=== PATIENT | male | born 1955 | race African-American/Black ===

== ENCOUNTER 2018-09-22 20:58 | Inpatient (IN) ==
[2018-09-22] MEDS ORDERED: Sod Chloride 0.9% Inj 1,000 ML IV.SIG ONE (22:00)
[2018-09-22] MEDS ORDERED: Morphine Sulfate Inj 2 MG/ML Vial IV.PUSH ONE (22:02)
[2018-09-22 22:37] LABS: Baso % (Auto) 0.6 % (0.0-2.0); Eos # (Auto) 0.1 th/mm3 (0.0-0.4); Eos % (Auto) 2.3 % (0.0-4.0); Hemoglobin 12.7 gm/dL (13.0-17.0); Lymph # (Auto) 1.5 th/mm3 (1.0-4.8); Lymph % (Auto) 28.7 % (9.0-44.0); Mean Corpuscular HGB Conc 34.2 % (32.0-36.0); Mean Corpuscular Hemoglobin 29.8 pg (27.0-34.0); Mean Corpuscular Volume 86.9 fL (80.0-100.0); Mean Platelet Volume 8.9 fL (7.0-11.0); Mono # (Auto) 0.6 th/mm3 (0.0-0.9); Mono % (Auto) 12.7 % (0.0-8.0); Neut # (Auto) 2.8 th/mm3 (1.8-7.7); Neut % (Auto) 55.7 % (16.0-70.0); Platelet Count 202 th/mm3 (150-450); Red Blood Count 4.25 mil/mm3 (4.50-5.90); Red Cell Distribution Width 13.6 % (11.6-17.2); White Blood Count 5.1 th/mm3 (4.0-11.0)
[2018-09-22 22:57] LABS: Activated Partial Thrombo Time 25.8 sec (24.3-30.1); INR 1.1 Ratio; Prothrombin Time 10.9 sec (9.8-11.6)
[2018-09-22 23:00] LABS: Alanine Aminotransferase 42 U/L (12-78); Alkaline Phosphatase 132 U/L (45-117); Creatine Kinase 240 U/L (39-308)
[2018-09-22 23:04] LABS: Albumin 3.7 g/dL (3.4-5.0); Anion Gap 7 meq/L (5-15); Aspartate Aminotransferase 35 U/L (15-37); Blood Urea Nitrogen 15 mg/dL (7-18); Calcium 8.7 mg/dL (8.5-10.1); Carbon Dioxide 28.4 meq/L (21.0-32.0); Chloride 108 meq/L (98-107); Glomerular Filtration Rate 75 mL/min (>89); Glucose,Random 94 mg/dL (74-106); Lipase 144 U/L (73-393); Magnesium 1.8 mg/dL (1.5-2.5); Potassium 3.8 meq/L (3.5-5.1); Sodium 143 meq/L (136-145)
[2018-09-22 23:18] LABS: Amphetamine Screen,Urine Neg (Neg); Barbiturate Screen,Urine Neg (Neg); Cannabinoid Screen,Urine Neg (Neg); Cocaine Screen,Urine Neg (Neg)
[2018-09-22 23:18] LABS: Creatine Kinase MB 1.4 ng/mL (0.5-3.6)
[2018-09-22 23:22] LABS: Opiate Screen,Urine Neg (Neg)
--- NOTE | 2018-09-22 23:48 | ED ---
HPI General Chief complaint: Abdominal Pain Stated complaint: Abdominal Pain Time Seen by Provider: 09/22/18 21:43 History of Present Illness HPI narrative: 63-year-old male here for evaluation of left lower quadrant abdominal pain, hematuria, and hematochezia. The patient reports having had hematuria and blood on his toilet paper after having a bowel movement for the last couple of weeks. He states that today he has been having left lower quadrant abdominal pain that started about an hour prior to arrival to the emergency department. The pain is sharp, constant, moderate, intermittently worse at times, no modifying factors. No nausea or vomiting. Last bowel movement was earlier today. He denies history of abdominal surgeries. No fevers or chills. No dysuria. Related Data Home Medications Medication Instructions Recorded Confirmed amlodipine 10 mg PO DAILY 09/22/18 09/22/18 lisinopril 40 mg PO DAILY 09/22/18 09/22/18 omeprazole 40 mg PO DAILY 09/22/18 09/22/18 Allergies Allergy/AdvReac Type Severity Reaction Status Date / Time No Known Allergies Allergy Uncoded 10/11/16 08:41 Review of Systems ROS: all other systems reviewed are negative [facility] Social History Social History Substance History: No History of Abuse Second Hand Smoke Exposure: No Smoking Status: Never smoker How Often Do You Have a Drink Containing Alcohol: Never Recent Travel in [facility] within the Last 8 Weeks: No Recent Out of Country Travel within the Last 8 Weeks: No Immunization History Tetanus Immunization: <5 Years Exam Narrative Exam Narrative: GENERAL: Well-developed, well-nourished, comfortable, no apparent distress. SKIN: Focused skin assessment warm/dry. No rash. HEAD: Atraumatic. Normocephalic. EYES: Pupils equal and round. No scleral icterus. No injection or drainage. ENT: Mucous membranes pink and moist. NECK: Trachea midline. No JVD. CARDIOVASCULAR: Regular rate and rhythm. RESPIRATORY: No accessory muscle use. Clear to auscultation. Breath sounds equal bilaterally. GASTROINTESTINAL: Abdomen soft, nondistended. Mild suprapubic and left lower quadrant tenderness without peritoneal signs. Rest of abdomen is soft and nontender. Normal bowel sounds. RECTUM: No masses, no fissures, no hemorrhoids, heme negative brown stool. MUSCULOSKELETAL: No obvious deformities. No clubbing. No cyanosis. No edema. No CVA tenderness. NEUROLOGICAL: Awake and alert. No obvious cranial nerve deficits. Motor grossly within normal limits. Normal speech. PSYCHIATRIC: Appropriate mood and affect; insight and judgment normal. Course Initial Documented Vital Signs Temperature 97.8 F 09/22/18 21:23 Pulse Rate 56 L 09/22/18 21:23 Respiratory Rate 18 09/22/18 21:23 Blood Pressure 156/90 H 09/22/18 21:23 Pulse Oximetry 95 09/22/18 21:23 Last Documented Vital Signs Temperature 97.8 F 09/22/18 21:23 Pulse Rate 91 H 09/22/18 21:31 Respiratory Rate 18 09/22/18 21:31 Blood Pressure 155/93 H 09/22/18 21:31 Pulse Oximetry 97 09/22/18 21:31 Medical Decision Making MDM Narrative Medical decision making narrative: Vital signs reviewed. CBC and CMP are essentially unremarkable. Creatinine is 1.19. UA shows hematuria, not suggestive of UTI. CT abdomen pelvis: CONCLUSION:1. 4 x 7 x 8 mm left UPJ stone with moderate obstructive uropathy. The stone is faintly visible on the initial loan inspector radiograph. Skin to stone distance is approximately 10.3 cm anterolaterally.2. Bilateral renal cysts. A 12 mm indeterminate lesion is seen of the mid zone of the right kidney. Attempted further characterization with outpatient abdomen MRI with and without contrast recommended.3. Liver is fatty infiltrated and has a few scattered benign cysts.4. Enlarged prostate Patient was made aware of all findings. He was provided morphine without improvement in his pain. He will be given Toradol. This is a rather large stone that is in the proximal urethra, and I believe that the probability of him passing this stone is low. Given ongoing pain, the patient will be admitted for overnight observation and urology evaluation for possible ureteral stenting. Case discussed with hospitalist Dr. Casey who will admit the patient to his service. Medical Screen Exam Complete: Yes Emergency Medical Condition: Yes Differential Diagnosis Differential Diagnosis: Nephrolithiasis, ureterolithiasis, pyelonephritis, colitis, diverticulitis Lab Data Result diagrams: 09/22/18 22:27 09/22/18 22:27 Lab Results 09/22/18 09/22/18 09/22/18 Range/Units 22:27 22:27 22:27 WBC 5.1 (4.0-11.0) th/mm3 RBC 4.25 L (4.50-5.90) mil/mm3 Hgb 12.7 L (13.0-17.0) gm/dL Hct 37.0 L (39.0-51.0) % MCV 86.9 (80.0-100.0) fL MCH 29.8 (27.0-34.0) pg MCHC 34.2 (32.0-36.0) % RDW 13.6 (11.6-17.2) % Plt Count 202 (150-450) th/mm3 MPV 8.9 (7.0-11.0) fL Neut % (Auto) 55.7 (16.0-70.0) % Lymph % (Auto) 28.7 (9.0-44.0) % Green % (Auto) 12.7 H (0.0-8.0) % Eos % (Auto) 2.3 (0.0-4.0) % Baso % (Auto) 0.6 (0.0-2.0) % Neut # (Auto) 2.8 (1.8-7.7) th/mm3 Lymph # (Auto) 1.5 (1.0-4.8) th/mm3 Green # (Auto) 0.6 (0.0-0.9) th/mm3 Eos # (Auto) 0.1 (0.0-0.4) th/mm3 Baso # (Auto) 0.0 (0.0-0.2) th/mm3 WBC Differential . Differential Comment Auto diff final PT 10.9 (9.8-11.6) sec INR 1.1 Ratio APTT 25.8 (24.3-30.1) sec Sodium 143 (136-145) meq/L Potassium 3.8 (3.5-5.1) meq/L Chloride 108 H (98-107) meq/L Carbon Dioxide 28.4 (21.0-32.0) meq/L Anion Gap 7 (5-15) meq/L BUN 15 (7-18) mg/dL Creatinine 1.19 (0.60-1.30) mg/dL Estimated GFR 75 L (>89) mL/min Random Glucose 94 (74-106) mg/dL Calcium 8.7 (8.5-10.1) mg/dL Magnesium 1.8 (1.5-2.5) mg/dL Total Bilirubin 0.9 (0.2-1.0) mg/dL AST 35 (15-37) U/L ALT 42 (12-78) U/L Alkaline Phosphatase 132 H (45-117) U/L Total Creatine Kinase 240 (39-308) U/L CK-MB (CK-2) 1.4 (0.5-3.6) ng/mL Total Protein 7.0 (6.4-8.2) g/dL Albumin 3.7 (3.4-5.0) g/dL Lipase 144 (73-393) U/L Urine Color (Yellw/Straw) Urine Clarity (Clear) Urine pH (5.0-8.5) Ur Specific [place] (1.002-1.035) Urine Protein (Neg-Trace) mg/dL Urine Glucose (UA) (Negative) mg/dL Urine Ketones (Negative) mg/dL Urine Occult Blood (Negative) Urine Nitrate (Negative) Urine Bilirubin (Negative) Urine Urobilinogen (Less than 2) mg/dL Ur Leukocyte Esterase (Negative) Urine RBC (0-3) /hpf Urine WBC (0-5) /hpf Ur Squamous Epith Cells (0-5) /hpf Micro UA Comment Ur Microscopic Review Urine Culture Comments Urine Opiates Screen (Neg) Ur Barbiturates Screen (Neg) Ur Amphetamines Screen (Neg) U Benzodiazepines Scrn (Neg) Urine Cocaine Screen (Neg) U Cannabinoids Screen (Neg) 09/22/18 09/22/18 Range/Units 22:42 22:42 WBC (4.0-11.0) th/mm3 RBC (4.50-5.90) mil/mm3 Hgb (13.0-17.0) gm/dL Hct (39.0-51.0) % MCV (80.0-100.0) fL MCH (27.0-34.0) pg MCHC (32.0-36.0) % RDW (11.6-17.2) % Plt Count (150-450) th/mm3 MPV (7.0-11.0) fL Neut % (Auto) (16.0-70.0) % Lymph % (Auto) (9.0-44.0) % Green % (Auto) (0.0-8.0) % Eos % (Auto) (0.0-4.0) % Baso % (Auto) (0.0-2.0) % Neut # (Auto) (1.8-7.7) th/mm3 Lymph # (Auto) (1.0-4.8) th/mm3 Green # (Auto) (0.0-0.9) th/mm3 Eos # (Auto) (0.0-0.4) th/mm3 Baso # (Auto) (0.0-0.2) th/mm3 WBC Differential Differential Comment PT (9.8-11.6) sec INR Ratio APTT (24.3-30.1) sec Sodium (136-145) meq/L Potassium (3.5-5.1) meq/L Chloride (98-107) meq/L Carbon Dioxide (21.0-32.0) meq/L Anion Gap (5-15) meq/L BUN (7-18) mg/dL Creatinine (0.60-1.30) mg/dL Estimated GFR (>89) mL/min Random Glucose (74-106) mg/dL Calcium (8.5-10.1) mg/dL Magnesium (1.5-2.5) mg/dL Total Bilirubin (0.2-1.0) mg/dL AST (15-37) U/L ALT (12-78) U/L Alkaline Phosphatase (45-117) U/L Total Creatine Kinase (39-308) U/L CK-MB (CK-2) (0.5-3.6) ng/mL Total Protein (6.4-8.2) g/dL Albumin (3.4-5.0) g/dL Lipase (73-393) U/L Urine Color Red H (Yellw/Straw) Urine Clarity Cloudy H (Clear) Urine pH 7.0 (5.0-8.5) Ur Specific [place] 1.003 (1.002-1.035) Urine Protein Trace (Neg-Trace) mg/dL Urine Glucose (UA) Negative (Negative) mg/dL Urine Ketones Negative (Negative) mg/dL Urine Occult Blood Large H (Negative) Urine Nitrate Negative (Negative) Urine Bilirubin Negative (Negative) Urine Urobilinogen 1.0 (Less than 2) mg/dL Ur Leukocyte Esterase Negative (Negative) Urine RBC 15-50 H (0-3) /hpf Urine WBC 0-5 (0-5) /hpf Ur Squamous Epith Cells 0-5 (0-5) /hpf Micro UA Comment Culture not ind Ur Microscopic Review Not Reportable Urine Culture Comments Culture not ind Urine Opiates Screen Neg (Neg) Ur Barbiturates Screen Neg (Neg) Ur Amphetamines Screen Neg (Neg) U Benzodiazepines Scrn Neg (Neg) Urine Cocaine Screen Neg (Neg) U Cannabinoids Screen Neg (Neg) Imaging Data Radiologist's impression: Abdomen/Pelvis CT 09/22/18 22:00 CONCLUSION: 1. 4 x 7 x 8 mm left UPJ stone with moderate obstructive uropathy. The stone is faintly visible on the initial loan inspector radiograph. Skin to stone distance is approximately 10.3 cm anterolaterally. 2. Bilateral renal cysts. A 12 mm indeterminate lesion is seen of the mid zone of the right kidney. Attempted further characterization with outpatient abdomen MRI with and without contrast recommended. 3. Liver is fatty infiltrated and has a few scattered benign cysts. 4. Enlarged prostate. Discharge Plan Discharge Disposition Patient Disposition: 30 Still Patient Discharge Condition Condition: Stable Discharge Details Diagnosis: Ureterolithiasis, Hydronephrosis, Renal cyst, Hepatic cyst Physicians Team ED Provider: Luís Zee Primary Care Provider: Primary Care ShilpiiAnjana Rxs /Orders / Referrals /Forms Prescriptions: No Action omeprazole 40 mg Capsule,Delayed Release(Dr/Ec) 40 mg PO DAILY RF: 0 amlodipine 10 mg Tablet 10 mg PO DAILY RF: 0 lisinopril 40 mg Tablet 40 mg PO DAILY RF: 0 Status ED Status: With Doctor
--- NOTE | 2018-09-23 00:07 | CT ---
EXAM DATE: 09/22/2018 11:58 PM EDT AGE/SEX: 63 years / Male INDICATIONS: Left lower quadrant pain and hematuria. CLINICAL DATA: This is the patient's initial encounter. Patient reports that signs and symptoms have been present for 2 days and indicates a pain score of 8/10. MEDICAL/SURGICAL HISTORY: Gastroesophageal reflux disease. Hypertension. Cerebrovascular dise ase. None. ORAL CONTRAST: No oral contrast ingested. RADIATION DOSE: 7.83 CTDI (mGy) COMPARISON: No prior exams available for comparison. TECHNIQUE: Multiple contiguous axial images were obtained through the abdomen and pelvis following b olus infusion of 94 ml Omnipaque 350 (iohexol) nonionic water-soluble contrast as a single exam dos e. No oral contrast ingested. Using automated exposure control and adjustment of the mA and/or kV ac cording to patient size, radiation dose was kept as low as reasonably achievable to obtain optimal di agnostic quality images. DICOM format image data is available electronically for review and comparis on. FINDINGS: There is a stone at the left ureteropelvic junction measuring 4 x 7 x 8 mm in size. There is moderate hydronephrosis. No stones or obstruction on the right. Scattered small cysts are seen bilaterally. T here is an intermediate attenuation mass posteriorly of the mid zone of the right kidney that measure s 12 mm, indeterminate. Liver is mild fatty infiltrated. A few scattered cysts measuring up to 12 mm in size are present. Spl een, pancreas and adrenal glands are within normal limits. No obstruction or acute inflammatory changes are seen of the gastrointestinal tract. No free fluid or free air. No lymphadenopathy. There is nonspecific prostate enlargement. Mild atelectasis of the visualized lung bases. No acute bony abnormality. CONCLUSION: 1. 4 x 7 x 8 mm left UPJ stone with moderate obstructive uropathy. The stone is faintly visible on t he initial cardiac technologist radiograph. Skin to stone distance is approximately 10.3 cm anterolaterally. 2. Bilateral renal cysts. A 12 mm indeterminate lesion is seen of the mid zone of the right kidney. Attempted further characterization with outpatient abdomen MRI with and without contrast recommended. 3. Liver is fatty infiltrated and has a few scattered benign cysts. 4. Enlarged prostate. Electronically signed by: Jeffrey Sawyer MD 09/23/2018 12:06 AM EDT
[2018-09-23] MEDS ORDERED: Ketorolac Inj 30 MG/ML (IVP) Vial IV.PUSH ONE (00:12)
[2018-09-23 00:17] LABS: Bilirubin,Urine Negative (Negative); Clarity,Urine Cloudy (Clear); Glucose,Urine (UA) Negative (Negative); Leukocyte Esterase,Urine Negative (Negative); Nitrite,Urine Negative (Negative)
[2018-09-23 00:21] LABS: Color,Urine Red (Yellw/Straw)
[2018-09-23 00:23] LABS: Specific Gravity,Urine 1.003 (1.002-1.035)
[2018-09-23 00:30] LABS: Squamous Epithelial Cell,Urine 0-5 /hpf (0-5); WBC,Urine 0-5 /hpf (0-5)
[2018-09-23] MEDS ORDERED: Naloxone Inj 0.4 MG/ML Vial IV.PUSH PRN (00:56)
[2018-09-23] MEDS ORDERED: oxyCODONE/Acetaminophen 10/325 Tablet PO PRN (00:56)
[2018-09-23] MEDS ORDERED: Morphine Inj 4 MG/ML Vial IV.PUSH PRN ×3 (00:56)
[2018-09-23] MEDS ORDERED: Bisacodyl 10 MG Supp RECTAL PRN (00:57)
[2018-09-23] MEDS: Sod Chloride 0.9% Inj 1,000 ML IV.CONT SCH ×4 (01:42→22:19)
[2018-09-23] MEDS: Senna/Docusate Sodium 8.6/50 MG Tablet PO SCH ×3 (09:06→22:18)
--- NOTE | 2018-09-23 09:53 | P.HP ---
History of Present Illness Primary Care Physician: No Primary Care Physician Chief Complaint: LLQ abdominal pain, hematuria History of Present Illness: 63-year-old male with history of CVA x4, hypertension, GERD, presents with a one day history of left lower quadrant pain, and ongoing hematuria. Patient reports he has had intermittent hematuria probably over the past year, recently reported to PCP and he was in the process of being set up to see a urologist. However, yesterday he developed a constant sharp 10/10 left lower quadrant abdominal pain without radiation. Denies any fevers, chills, nausea/vomiting, or dysuria. He reports his last bowel movement was yesterday. He states he has a history of kidney stones many years ago but has not had any problems since. He denies any other medical complaints including no chest pain, palpitations, shortness of breath. He states he is generally weak from his prior strokes that began 12 years ago, with a little bit of a speech deficit at baseline. Inpatient Certification: I certify that the inpatient services were ordered in accordance with Medicare regulations governing the order. This includes certification that hospital inpatient services are reasonable and necessary and in the case of services not specified as inpatient-only under 42 CFR 419.22(n), that they are appropriately provided as inpatient services in accordance to with the 2-midnight benchmark under 43 CFR 412.3(e) Estimated Total Length of Stay (Days): 2 Plans for Post Hospital Care: Home Review of Systems All other systems reviewed negative except as stated in [facility] - History History Provided By: Patient - Medical / Surgical Hx Neg / Unobtainable Surgical History: No Previous Surgery - Medical History Medical History: Medical History (Last Reviewed 09/23/18 @ 07:52 by Joe Valadez) GERD (gastroesophageal reflux disease) History of stroke Hypertension Polyp of colon - Family History Family History: Family History (Last Updated 09/23/18 @ 10:30 by Cristina Wright) Mother Kidney disease - Social History I have reviewed the patient's Social History: Yes - Tobacco History Second Hand Smoke Exposure: No Tobacco Use In Past 30 Days: No Smoking Status: Former smoker (Smoked less that 1 PPD, quit 12 years ago.) - Alcohol History How Often Do You Have a Drink Containing Alcohol: Never (Quit 12 years ago.) - Substance Use History Substance History: No History of Abuse, Past History (Quit 12 years ago. ) - Travel History Recent Travel in the [place] Within the Last 8 Weeks: No Recent Travel Out of the Country Within the Last 8 Weeks: No - Immunization History Tetanus Immunization: <5 Years Medications and Allergies Active Medications: Active Medications Al Hydroxide/Mg Hydroxide (Milk Of Magnesia Liq) 30 ml PO Q12H PRN PRN Reason: Mild Constipation Bisacodyl (Dulcolax Supp) 10 mg RECTAL DAILY PRN PRN Reason: SEVERE CONSITIPATION Sodium Chloride (Ns Inj) 1,000 mls @ 100 mls/hr IV.CONT .Q10H [facility] Last Admin: 09/23/18 01:42 Dose: 100 mls/hr Lactulose (Lactulose Liq) 30 ml PO DAILY PRN PRN Reason: SEVERE CONSITIPATION Morphine Sulfate (Morphine Inj) 2 mg IV.PUSH Q3H PRN PRN Reason: PAIN 3-5; IF UABLE TO TAKE PO Morphine Sulfate (Morphine Inj) 4 mg IV.PUSH Q3H PRN PRN Reason: PAIN 6-10;IF UNABLE TO TAKE PO Morphine Sulfate (Morphine Inj) 2 mg IV.PUSH Q3H PRN PRN Reason: BREAKTHROUGH PAIN Naloxone HCl (Narcan Inj) 0.4 mg IV.PUSH UNSCH PRN PRN Reason: SEE LABEL COMMENTS Oxycodone/Acetaminophen (Percocet 10/325 Mg) 1 tab PO Q6H PRN PRN Reason: PAIN SCALE 6 TO 10 Oxycodone/Acetaminophen (Percocet 5/325 Mg) 1 tab PO Q6H PRN PRN Reason: PAIN SCALE 3 TO 5 Senna/Docusate Sodium (Mckayla-Colace) 1 tab PO BID [facility] Last Admin: 09/23/18 09:06 Dose: Not Given Sennosides (Senokot) 17.2 mg PO Q12H PRN PRN Reason: Moderate Constipation Sodium Chloride (Ns Flush) 2 ml IV.FLUSH PRN PRN PRN Reason: FLUSH AFTER USING IV ACCESS Allergies Allergy/AdvReac Type Severity Reaction Status Date / Time No Known Allergies Allergy Uncoded 10/11/16 08:41 Home Medications Medication Instructions Recorded Confirmed Type amlodipine 10 mg PO DAILY 09/22/18 09/22/18 History lisinopril 40 mg PO DAILY 09/22/18 09/22/18 History omeprazole 40 mg PO DAILY 09/22/18 09/22/18 History Exam Vital signs: Vital Signs 09/22/18 21:23 09/22/18 21:31 09/23/18 03:38 Temperature 97.8 F Pulse Rate 56 L 91 H 51 L Respiratory Rate 18 18 18 Blood Pressure 156/90 H 155/93 H 125/76 Pulse Oximetry 95 97 93 L 09/23/18 08:50 Temperature 98.0 F Pulse Rate 54 L Respiratory Rate 16 Blood Pressure 119/71 Pulse Oximetry 95 Intake & Output 09/22/18 09/23/18 09/23/18 18:59 06:59 18:59 Intake Total 1000 / 1000 Balance 1000 / 1000 Weight 185 kg Intake: IV 1000 / 1000 NS Inj 1,000 ML @ Wide Open IV. 1000 / 1000 SIG BOLUS ONE Rx#:[id number] Other: Date of Last Bowel Movement 09/22/18 Narrative: GENERAL: Well-nourished, well-developed pleasant male patient in [facility]. SKIN: Warm and dry. No rash. HEENT: Normocephalic. Atraumatic. Pupils equal and round. Mucous membranes pink and moist. NECK: Supple. Trachea midline. CARDIOVASCULAR: Regular rate and rhythm. No murmur appreciated. RESPIRATORY: No accessory muscle use. Clear to auscultation. Breath sounds equal bilaterally. GASTROINTESTINAL: Abdomen soft, nondistended, LLQ TTP. Normoactive bowel sounds x4. MUSCULOSKELETAL: No obvious deformities. Extremities without clubbing, cyanosis , or edema. NEUROLOGICAL: Awake and alert. No obvious cranial nerve deficits. Motor grossly within normal limits. Moving all extremities spontaneously. Slow speech. PSYCHIATRIC: Appropriate mood and affect; insight and judgment normal. Results - Labs CBC & Chem 7: 09/22/18 22:27 09/22/18 22:27 Labs: Laboratory Results - last 24 hr 09/22/18 09/22/18 09/22/18 22:27 22:27 22:27 WBC 5.1 RBC 4.25 L Hgb 12.7 L Hct 37.0 L MCV 86.9 MCH 29.8 MCHC 34.2 RDW 13.6 Plt Count 202 MPV 8.9 Neut % (Auto) 55.7 Lymph % (Auto) 28.7 [place] % (Auto) 12.7 H Eos % (Auto) 2.3 Baso % (Auto) 0.6 Neut # (Auto) 2.8 Lymph # (Auto) 1.5 [place] # (Auto) 0.6 Eos # (Auto) 0.1 Baso # (Auto) 0.0 WBC Differential . Differential Comment Auto diff final PT 10.9 INR 1.1 APTT 25.8 Sodium 143 Potassium 3.8 Chloride 108 H Carbon Dioxide 28.4 Anion Gap 7 BUN 15 Creatinine 1.19 Estimated GFR 75 L Random Glucose 94 Calcium 8.7 Magnesium 1.8 Total Bilirubin 0.9 AST 35 ALT 42 Alkaline Phosphatase 132 H Total Creatine Kinase 240 CK-MB (CK-2) 1.4 Total Protein 7.0 Albumin 3.7 Lipase 144 Urine Color Urine Clarity Urine pH Ur Specific [place] Urine Protein Urine Glucose (UA) Urine Ketones Urine Occult Blood Urine Nitrate Urine Bilirubin Urine Urobilinogen Ur Leukocyte Esterase Urine RBC Urine WBC Ur Squamous Epith Cells Micro UA Comment Ur Microscopic Review Urine Culture Comments Urine Opiates Screen Ur Barbiturates Screen Ur Amphetamines Screen U Benzodiazepines Scrn Urine Cocaine Screen U Cannabinoids Screen 09/22/18 09/22/18 22:42 22:42 WBC RBC Hgb Hct MCV MCH MCHC RDW Plt Count MPV Neut % (Auto) Lymph % (Auto) [place] % (Auto) Eos % (Auto) Baso % (Auto) Neut # (Auto) Lymph # (Auto) [place] # (Auto) Eos # (Auto) Baso # (Auto) WBC Differential Differential Comment PT INR APTT Sodium Potassium Chloride Carbon Dioxide Anion Gap BUN Creatinine Estimated GFR Random Glucose Calcium Magnesium Total Bilirubin AST ALT Alkaline Phosphatase Total Creatine Kinase CK-MB (CK-2) Total Protein Albumin Lipase Urine Color Red H Urine Clarity Cloudy H Urine pH 7.0 Ur Specific [place] 1.003 Urine Protein Trace Urine Glucose (UA) Negative Urine Ketones Negative Urine Occult Blood Large H Urine Nitrate Negative Urine Bilirubin Negative Urine Urobilinogen 1.0 Ur Leukocyte Esterase Negative Urine RBC 15-50 H Urine WBC 0-5 Ur Squamous Epith Cells 0-5 Micro UA Comment Culture not ind Ur Microscopic Review Not Reportable Urine Culture Comments Culture not ind Urine Opiates Screen Neg Ur Barbiturates Screen Neg Ur Amphetamines Screen Neg U Benzodiazepines Scrn Neg Urine Cocaine Screen Neg U Cannabinoids Screen Neg - Imaging Impressions Abdomen/Pelvis CT 09/22/18 22:00 CONCLUSION: 1. 4 x 7 x 8 mm left UPJ stone with moderate obstructive uropathy. The stone is faintly visible on the initial dormitory counselor radiograph. Skin to stone distance is approximately 10.3 cm anterolaterally. 2. Bilateral renal cysts. A 12 mm indeterminate lesion is seen of the mid zone of the right kidney. Attempted further characterization with outpatient abdomen MRI with and without contrast recommended. 3. Liver is fatty infiltrated and has a few scattered benign cysts. 4. Enlarged prostate. Caprini VTE Risk Assessment Caprini VTE Risk Assessment: Moderate/High Risk (score >= 2) VTE Pharmacological Exception Reason: Active bleeding Caprini Risk Assessment Model: Point Value = 1 Point Value = 2 Point Value = 3 Point Value = 5 Age 41-60 Minor surgery BMI > 25 kg/m2 Swollen legs Varicose veins or History of unexplained or recurrent spontaneous Oral contraceptives or hormone replacement Sepsis (< 1 month) Serious lung disease, including pneumonia (< 1 month) Abnormal pulmonary function Acute myocardial infarction Congestive heart failure (< 1 month) History of inflammatory bowel disease Medical patient at bed rest Age 61-74 Arthroscopic surgery Major open surgery (> 45 min) Laparoscopic surgery (> 45 min) Malignancy Confined to bed (> 72 hours) Immobilizing plaster cast Central venous access Age >= 75 History of VTE Family history of VTE Factor V Leiden Prothrombin [id number] Lupus anticoagulant Anticardiolipin antibodies Elevated serum homocysteine Heparin-induced thrombocytopenia Other congenital or acquired thrombophilia Stroke (< 1 month) Elective arthroplasty Hip, pelvis, or leg fracture Acute spinal cord injury (< 1 month) Prophylaxis Regimen: Total Risk Factor Score Risk Level Prophylaxis Regimen 0-1 Low Early ambulation 2 Moderate Order ONE of the following: *Sequential Compression Device (SCD) *Heparin 5000 units SQ BID 3-4 Higher Order ONE of the following medications: *Heparin 5000 units SQ TID *Enoxaparin/Lovenox 40 mg SQ daily (WT < 150 kg, CrCl > 30 mL/min) *Enoxaparin/Lovenox 30 mg SQ daily (WT < 150 kg, CrCl > 10-29 mL/min) *Enoxaparin/Lovenox 30 mg SQ BID (WT < 150 kg, CrCl > 30 mL/min) AND/OR *Sequential Compression Device (SCD) 5 or more Highest Order ONE of the following medications: *Heparin 5000 units SQ TID (Preferred with Epidurals) *Enoxaparin/Lovenox 40 mg SQ daily (WT < 150 kg, CrCl > 30 mL/min) *Enoxaparin/Lovenox 30 mg SQ daily (WT < 150 kg, CrCl > 10-29 mL/min) *Enoxaparin/Lovenox 30 mg SQ BID (WT < 150 kg, CrCl > 30 mL/min) AND *Sequential Compression Device (SCD) Assessment and Plan - Plan 63-year-old male with history of CVA x4, hypertension, GERD, presents with a one day history of left lower quadrant pain, and ongoing hematuria. Nephrolithiasis with Obstructive Uropathy: acute, with LLQ pain and hematuria. -CT abd/pelvis reviewed, shows 4 x 7 x 8 mm left UPJ stone with moderate obstructive uropathy. -UA and BMP unremarkable -Continue IVF hydration -Pain control with Percocet prn and IV morphine prn -Consulted urology, plans for cystoscopy with left stent insertion -Will need outpatient f/up for lithotripsy Possible Renal Mass: incidentally found on CT -CT abd/pelvis also showed bilateral renal cysts and a 12mm indeterminate lesion is seen of the mid zone of the right kidney. Attempted further characterization with outpatient abdomen MRI with and without contrast recommended. -Follow up with urology as outpatient BPH: chronic -CT showed enlarged prostate -Outpatient f/up with PCP/urology for PSA and monitoring Hypertension: chronic, BP fairly well controlled -restart patient amlodipine, hold lisinopril for now -Monitor BP, adjust antihypertensives as needed Hx of CVA: with deficit of generalized weakness and slowed speech -consult PT GERD: chronic -continue patient's PPI DVT Prophylaxis: teds/SCDs; avoid chemical prophylaxis with active hematuria and upcoming procedure
--- NOTE | 2018-09-23 10:41 | MB ---
cc: Aditya Frankel DO DATE: 09/23/2018 HISTORY OF PRESENT ILLNESS: Mr. Boaz Gonzalez is a pleasant 63-year-old male who presents with left-sided abdominal pain. CT scan demonstrated an 8 mm left UPJ stone with hydronephrosis. He was also having hematuria as well as hematochezia. He has a history of stones in the past, but he is unclear if he had a procedure for this. He has also had a history of a CVA, his last one 3 years ago. PAST MEDICAL HISTORY: Includes hypertension, prior CVA, history of kidney stones, high cholesterol. PAST SURGICAL HISTORY: Prior urologic surgery. SOCIAL HISTORY: Denies denies smoking, drinking, or using any drugs. FAMILY HISTORY: Noted for stones. REVIEW OF SYSTEMS: Left-sided flank pain as noted, hematuria, hematochezia. Denies fever or chills. Denies bleeding disorders, skin lesions, chest pain, shortness of breath, or abdominal pain. Denies constipation or diarrhea. Denies dysuria. Remaining review of systems were reviewed and were negative. PHYSICAL EXAMINATION: VITAL SIGNS: Temperature 98, heart rate 54, respiratory rate 16, 119/71. GENERAL: Well-developed, well-nourished, 63-year-old male in no acute distress. HEENT: Normocephalic, atraumatic. Pupils equal, round, reactive to light. Extraocular movements intact. NECK: Supple. HEART: Regular rate and rhythm. LUNGS: Clear. ABDOMEN: Soft. He has had left lower quadrant tenderness, left CVA tenderness is noted. GENITOURINARY: Normal phallus. Testes descended. EXTREMITIES: Show no evidence for cyanosis, clubbing, or edema. DIAGNOSTIC DATA: White count 5.1, hematocrit 12.7, hematocrit 37.0, platelet count of 202. Sodium 143, potassium 3.8, chloride 108, CO2 of 28.4, BUN of 15, creatinine 1.1, glucose of 94. Urinalysis 15-50 red cells, nitrites negative. Imaging: Again, 8 mm left UPJ stone. ASSESSMENT AND PLAN: A 63-year-old male with an 8 mm left ureteropelvic junction stone. Recommend cystoscopy with left double-J stent insertion and will need outpatient lithotripsy. Findings of a renal mass were also noted and will recommend an outpatient MRI in the future. Continue n.p.o. Thank you for the consult. DO GAVINO Quintanilla/jerrell , 09:16 AM , 09:24 AM
[2018-09-23] MEDS ORDERED: Chlorhexidine Gluconate 2% 1 Pack (2 Cloths) TOPICAL ONE (11:41)
[2018-09-23] MEDS ORDERED: Metoprolol Tartrate 25 MG Tablet PO ONE (11:41)
[2018-09-23] MEDS ORDERED: Sodium Chlor 0.9% Inj 500 ML IV.SIG SCH (12:00)
[2018-09-23] MEDS: amLODIPine 10 MG Tablet PO SCH (12:40)
--- NOTE | 2018-09-23 14:31 | ECG ---
Date Performed: 09/22/2018 Time Performed: 22:30:10 PTAGE: 63 years EKG: SINUS BRADYCARDIA NONSPECIFIC T-WAVE ABNORMALITY BORDERLINE ECG NO PREVIOUS TRACING DOCTOR: Jas Jimenez Interpretating Date/Time 09/23/2018 14:27:12
[2018-09-23] MEDS ORDERED: Iohexol Inj 350 MG/ML 100 ML Bottle (for RAD Diag) IVCONTRAST ONE (17:33)
--- NOTE | 2018-09-23 17:46 | P.OP ---
- Preoperative Diagnosis (1) Ureterolithiasis (2) Hydronephrosis - Postoperative Diagnosis (1) Ureterolithiasis (2) Hydronephrosis Date of procedure: 09/23/18 Procedure: Cystoscopy, left retrograde pyelogram, left double-J stent insertion Anesthesia: GETA Surgeon: Aditya Frankel DO Estimated blood loss (mL): 0 Pathology: none sent Operation and Findings: 63-year-old male with findings of a 8 mm left UPJ stone who presented with left- sided abdominal pain and flank pain. Decision made to bring the patient to the operating room to undergo a stent insertion. Patient was brought to the operating room and identified by myself as Boaz Gonzalez. He was placed in the dorsolithotomy position, prepped and draped you sterile fashion, received preprocedure antibiotics and general endotracheal tube anesthesia was administered. 22 [place] cystoscope was inserted in the bladder knutson cystoscopy did not reveal any abnormalities. The left ureteral orifice was identified a 5 [place] Buchanan catheter was inserted into the left ureteral orifice and retrograde pyelogram was performed. The stone was identified at the area of the left UPJ. A 0.35 sensor wire was then passed through the open-ended catheter followed by a 6 [place] 22 cm left double-J stent. The bladder was evacuated he tolerated the procedure well. He was transferred to recovery room in stable condition. In the future, the patient will undergo left ureteroscopy with laser lithotripsy and stone extraction.
[2018-09-23] MEDS ORDERED: Sugammadex Inj 200 MG/2 ML Vial IV.PUSH ONE (18:06)
[2018-09-23] MEDS ORDERED: fentaNYL Citrate Inj 100 MCG/2 ML Ampul ONE (18:07)
[2018-09-23] MEDS ORDERED: ceFAZolin 2 GM Premix Inj 2 GM/50 ML PIGGYBACK IV.SIG ONE (18:15)
[2018-09-24] MEDS: Sod Chloride 0.9% Inj 1,000 ML IV.CONT SCH (06:23)
[2018-09-24 08:14] LABS: Albumin 3.1 g/dL (3.4-5.0); Anion Gap 6 meq/L (5-15); Aspartate Aminotransferase 21 U/L (15-37); Blood Urea Nitrogen 15 mg/dL (7-18); Calcium 8.9 mg/dL (8.5-10.1); Carbon Dioxide 25.8 meq/L (21.0-32.0); Chloride 108 meq/L (98-107); Glomerular Filtration Rate 48 mL/min (>89); Glucose,Random 130 mg/dL (74-106); Potassium 4.4 meq/L (3.5-5.1); Sodium 140 meq/L (136-145)
[2018-09-24 08:15] LABS: Alanine Aminotransferase 35 U/L (12-78)
[2018-09-24 08:18] LABS: Alkaline Phosphatase 105 U/L (45-117); Total Protein 6.6 g/dL (6.4-8.2)
[2018-09-24] MEDS: Senna/Docusate Sodium 8.6/50 MG Tablet PO SCH (08:22)
[2018-09-24] MEDS: amLODIPine 10 MG Tablet PO SCH (08:22)
[2018-09-24 08:29] LABS: Baso % (Auto) 0.2 % (0.0-2.0); Eos % (Auto) 0.4 % (0.0-4.0); Hematocrit 36.7 % (39.0-51.0); Hemoglobin 12.5 gm/dL (13.0-17.0); Lymph # (Auto) 0.9 th/mm3 (1.0-4.8); Lymph % (Auto) 10.4 % (9.0-44.0); Mean Corpuscular HGB Conc 34.1 % (32.0-36.0); Mean Corpuscular Hemoglobin 29.8 pg (27.0-34.0); Mean Corpuscular Volume 87.5 fL (80.0-100.0); Mean Platelet Volume 8.8 fL (7.0-11.0); Mono % (Auto) 10.7 % (0.0-8.0); Neut # (Auto) 7.1 th/mm3 (1.8-7.7); Neut % (Auto) 78.3 % (16.0-70.0); Platelet Count 200 th/mm3 (150-450); Red Blood Count 4.19 mil/mm3 (4.50-5.90); Red Cell Distribution Width 13.6 % (11.6-17.2); White Blood Count 9.1 th/mm3 (4.0-11.0)
--- NOTE | 2018-09-24 08:40 | P.PN ---
Subjective Interval history: Follow up for nephrolithiasis, LUIS ANGEL. The patient is s/p left ureteral stent placement yesterday 09/23. He reports feeling well today, pain has improved. He is urinating well although reporting some hematuria. Denies any fevers/chills. He feels ready to go home. Denies any other medical complaints at this time. Discussed recommendations to follow up with Dr. Frankel for outpatient laser lithotripsy and stone extraction, patient verbalized understanding. Physical Exam Vital signs: Vital Signs 09/23/18 08:50 09/23/18 13:05 09/23/18 17:56 Temperature 98.0 F 98.3 F 98.0 F Pulse Rate 54 L 51 L 72 Respiratory Rate 16 18 18 Blood Pressure 119/71 133/89 148/84 H Pulse Oximetry 95 97 100 09/23/18 18:00 09/23/18 18:15 09/23/18 18:30 Temperature 97.9 F Pulse Rate 71 66 57 L Respiratory Rate 16 19 18 Blood Pressure 142/80 H 133/81 148/90 H Pulse Oximetry 100 99 100 09/23/18 20:35 09/23/18 23:52 09/24/18 04:00 Temperature 97.6 F 98.4 F 98.7 F Pulse Rate 51 L 61 75 Respiratory Rate 16 16 16 Blood Pressure 159/84 H 130/81 127/83 Pulse Oximetry 95 94 L 96 09/24/18 08:00 Temperature 98.3 F Pulse Rate 61 Respiratory Rate 16 Blood Pressure 126/74 Pulse Oximetry 97 Intake & Output 09/23/18 09/24/18 09/24/18 18:59 06:59 18:59 Intake Total 1854 / 1854 1150 / 1150 Output Total 150 / 150 Balance 1704 / 1704 1150 / 1150 Weight 88.5 kg Intake: IV 1000 / 1000 1150 / 1150 NS Inj 1,000 ML @ 100 mls/hr IV 1000 / 1000 1000 / 1000 .CONT .Q10H [facility] Rx#:[id number] Ancef 2 GM Premix Inj 2 gm In 50 / 50 50 ml @ 100 mls/hr IV.SIG ONCE ONE Rx#:[id number] Ancef Inj 2,000 MG In NS Inj 100 / 100 100 ML @ 100 mls/hr IV.SIG ONCE ONE Rx#:[id number] Oral 504 / 504 Anesthesia Amount 350 / 350 Output: Urine 150 / 150 Other: # Voids 1 Date of Last Bowel Movement 09/22/18 09/22/18 Weight On Admission 88.5 kg Narrative: GENERAL: Well-nourished, well-developed pleasant male patient in [facility]. SKIN: Warm and dry. No rash. HEENT: Normocephalic. Atraumatic. Pupils equal and round. Mucous membranes pink and moist. CARDIOVASCULAR: Regular rate and rhythm. No murmur appreciated. RESPIRATORY: No accessory muscle use. Clear to auscultation. Breath sounds equal bilaterally. GASTROINTESTINAL: Abdomen soft, nondistended, nontender today. Normoactive bowel sounds x4. MUSCULOSKELETAL: No obvious deformities. Extremities without clubbing, cyanosis , or edema. NEUROLOGICAL: Awake and alert. No obvious cranial nerve deficits. Moving all extremities spontaneously. Slow speech. PSYCHIATRIC: Appropriate mood and affect; insight and judgment normal. Results - Labs CBC & Chem 7: 09/24/18 08:05 09/24/18 07:20 Laboratory Results - last 24 hr 09/24/18 09/24/18 07:20 08:05 WBC 9.1 RBC 4.19 L Hgb 12.5 L Hct 36.7 L MCV 87.5 MCH 29.8 MCHC 34.1 RDW 13.6 Plt Count 200 MPV 8.8 Neut % (Auto) 78.3 H Lymph % (Auto) 10.4 Towns % (Auto) 10.7 H Eos % (Auto) 0.4 Baso % (Auto) 0.2 Neut # (Auto) 7.1 Lymph # (Auto) 0.9 L Towns # (Auto) 1.0 H Eos # (Auto) 0.0 Baso # (Auto) 0.0 WBC Differential . Differential Comment Auto diff final Sodium 140 Potassium 4.4 Chloride 108 H Carbon Dioxide 25.8 Anion Gap 6 BUN 15 Creatinine 1.73 H Estimated GFR 48 L Random Glucose 130 H Calcium 8.9 Total Bilirubin 0.9 AST 21 ALT 35 Alkaline Phosphatase 105 Total Protein 6.6 Albumin 3.1 L D - Imaging Abdomen/Pelvis CT 09/22/18 22:00 CONCLUSION: 1. 4 x 7 x 8 mm left UPJ stone with moderate obstructive uropathy. The stone is faintly visible on the initial waiter/waitress club radiograph. Skin to stone distance is approximately 10.3 cm anterolaterally. 2. Bilateral renal cysts. A 12 mm indeterminate lesion is seen of the mid zone of the right kidney. Attempted further characterization with outpatient abdomen MRI with and without contrast recommended. 3. Liver is fatty infiltrated and has a few scattered benign cysts. 4. Enlarged prostate. - Procedures 09/23/18 - Dr. Frankel - Cystoscopy, left retrograde pyelogram, left double-J stent insertion Assessment and Plan - Plan 63-year-old male with history of CVA x4, hypertension, GERD, presents with a one day history of left lower quadrant pain, and ongoing hematuria. Nephrolithiasis with Obstructive Uropathy: acute, with LLQ pain and hematuria. -CT abd/pelvis reviewed, shows 4 x 7 x 8 mm left UPJ stone with moderate obstructive uropathy. -UA unremarkable -Continue IVF hydration -Started on flomax -Pain control with Percocet prn and IV morphine prn -Consulted urology, s/p cystoscopy with left ureteral stent insertion -Urology cleared for d/c, recommended outpatient follow up for laser lithotripsy and stone extraction LUIS ANGEL: Cr increased from 1.19 to 1.73 today. Secondary to above -Give IVF hydration -Patient urinating well -Recheck BMP this afternoon Possible Renal Mass: incidentally found on CT -CT abd/pelvis also showed bilateral renal cysts and a 12mm indeterminate lesion is seen of the mid zone of the right kidney. Attempted further characterization with outpatient abdomen MRI with and without contrast recommended. -Dr. Frankel reported no visible mass during cystoscopy -Follow up with urology as outpatient BPH: chronic -CT showed enlarged prostate -Started on flomax -Outpatient f/up with PCP/urology for PSA and monitoring Hypertension: chronic, BP fairly well controlled -restart patient amlodipine, however holding lisinopril with well controlled BP and current LUIS ANGEL -Monitor BP, adjust antihypertensives as needed -Stable Hx of CVA: with deficit of generalized weakness and slowed speech -consult PT, recommends walker, case management assisting, unable to arrange [facility] due to insurance barriers GERD: chronic -continue patient's PPI DVT Prophylaxis: teds/SCDs; avoid chemical prophylaxis with active hematuria and recent procedure Discharge Planning: Will discharge if this afternoon's BMP shows improvement. Discharge patient to home Condition on discharge: Stable Heart Healthy Diet as tolerated Ad Saundra activity Rx written: flomax 0.4mg daily, walker Follow-up with primary care physician and urology Dr. Frankel
[2018-09-24] MEDS ORDERED: Sod Chloride 0.9% Inj 1,000 ML IV.CONT SCH ×2 (08:45→15:15)
[2018-09-24 14:29] LABS: Calcium 8.8 mg/dL (8.5-10.1); Carbon Dioxide 27.9 meq/L (21.0-32.0); Potassium 3.7 meq/L (3.5-5.1)
== END 2018-09-24 19:41 | disposition home or self-care (01) ==
LOC: NEDA 20:58 → NEPD 20:58 → OBSVTOIN 09-23 00:55 → NEPFCDU 09-23 04:57
PROVIDERS: ADMIT Hospitalist; ATTEND Hospitalist